=== PATIENT | female | born 1975 | race Hispanic/Latino ===

== ENCOUNTER 2017-06-09 10:06 | Outpatient (CLI) | payer BC | END 2017-06-09 10:07 | disposition home or self-care (01) | LOC: BICRAD 10:06 | PROVIDERS: ATTEND Physician Assistant Medical | DX: R06.02 Shortness of breath (principal); R05 Cough; R06.00 Dyspnea, unspecified; Z87.01 Personal history of pneumonia (recurrent) | CPT/HCPCS: 71046 ==

== ENCOUNTER 2021-03-06 11:23 | Outpatient (CLI) | payer BC | END 2021-03-06 11:24 | disposition home or self-care (01) | LOC: BICRAD 11:23 | PROVIDERS: ATTEND Internal Medicine | DX: R06.00 Dyspnea, unspecified (principal) | CPT/HCPCS: 71046 ==